=== PATIENT | female | born 1965 ===

== ENCOUNTER 2019-01-29 09:13 | Emergency (ER) | payer OTHER ==
--- NOTE | 2019-01-29 09:24 | EDM.PDOC ---
ED HPI GENERAL MEDICAL PROBLEM - General Chief Complaint: Respiratory Problem Stated Complaint: COUGH Time Seen by Provider: 01/29/19 09:21 - History of Present Illness INITIAL COMMENTS - FREE TEXT/NARRATIVE: HISTORY AND PHYSICAL: History of present illness: Patient 53-year-old female presents with a concern of shortness of breath and cough worse over last several days she had a similar episode last year for chest was diagnosed with community acquired pneumonia treated as outpatient patient is a smoker Review of systems: As per history of present illness and below otherwise all systems reviewed and negative. Past medical history: As per history of present illness and as reviewed below otherwise noncontributory. Surgical history: As per history of present illness and as reviewed below otherwise noncontributory. Social history: No reported history of drug or alcohol abuse. Family history: As per history of present illness and as reviewed below otherwise noncontributory. Physical exam: HEENT: Atraumatic, normocephalic, pupils reactive, negative for conjunctival pallor or scleral icterus, mucous membranes moist, throat clear, neck supple, nontender, trachea midline. Lungs: Coarse bilaterally, breath sounds equal bilaterally, chest nontender. Heart: S1S2, regular, negative for clicks, rubs, or JVD. Abdomen: Soft, nondistended, nontender. Negative for masses or hepatosplenomegaly. Negative for costovertebral tenderness. Pelvis: Stable nontender. Genitourinary: Deferred. Rectal: Deferred. Extremities: Atraumatic, negative for cords or calf pain. Neurovascular unremarkable. Neuro: Awake, alert, oriented. Cranial nerves II through XII unremarkable. Cerebellum unremarkable. Motor and sensory unremarkable throughout. Exam nonfocal. Diagnostics: CBC CMP influenza screen chest x-ray Therapeutics: Albuterol ipratropium nebulizer Impression: #1 tracheobronchitis Definitive disposition and diagnosis as appropriate pending reevaluation and review of above. - Related Data Allergies Allergy/AdvReac Type Severity Reaction Status Date / Time morphine Allergy Burning Verified 02/18/18 10:06 ED ROS GENERAL - Review of Systems Review Of Systems: Comprehensive ROS is negative, except as noted in HPI. ED EXAM, GENERAL - Physical Exam Exam: See Below (See dictation) Course - Vital Signs Last Recorded V/S: Last Vital Signs Temp 35.9 C 01/29/19 09:20 Pulse 86 01/29/19 09:20 Resp 20 01/29/19 09:20 BP 141/83 H 01/29/19 09:20 Pulse Ox 97 01/29/19 09:20 - Orders/Labs/Meds Orders: Active Orders 24 hr Category Date Time Status RT Aerosol Therapy [RC] ASDIRECTED Care 01/29/19 09:26 Active Labs: Laboratory Tests 01/29/19 01/29/19 Range/Units 09:36 09:36 WBC 7.33 (4.0-11.0) K/uL RBC 4.57 (4.30-5.90) M/uL Hgb 14.4 (12.0-16.0) g/dL Hct 43.3 (36.0-46.0) % MCV 94.7 (80.0-98.0) fL MCH 31.5 (27.0-32.0) pg MCHC 33.3 (31.0-37.0) g/dL RDW Std Deviation 43.5 (28.0-62.0) fl RDW Coeff of Brian 13 (11.0-15.0) % Plt Count 205 (150-400) K/uL MPV 10.70 (7.40-12.00) fL Neut % (Auto) 65.6 (48.0-80.0) % Lymph % (Auto) 23.2 (16.0-40.0) % [place] % (Auto) 7.8 (0.0-15.0) % Eos % (Auto) 3.1 (0.0-7.0) % Baso % (Auto) 0.3 (0.0-1.5) % Neut # (Auto) 4.8 (1.4-5.7) K/uL Lymph # (Auto) 1.7 (0.6-2.4) K/uL [place] # (Auto) 0.6 (0.0-0.8) K/uL Eos # (Auto) 0.2 (0.0-0.7) K/uL Baso # (Auto) 0.0 (0.0-0.1) K/uL Nucleated RBC % 0.0 /100WBC Nucleated RBCs # 0 K/uL Sodium 140 (136-145) mmol/L Potassium 3.8 (3.5-5.1) mmol/L Chloride 105 (98-107) mmol/L Carbon Dioxide 22.4 (21.0-32.0) mmol/L BUN 10 (7.0-18.0) mg/dL Creatinine 0.9 (0.6-1.0) mg/dL Est Cr Clr Drug Dosing 60.49 mL/min Estimated GFR (MDRD) > 60.0 ml/min Glucose 115 H (74-106) mg/dL Calcium 9.1 (8.5-10.1) mg/dL Total Bilirubin 0.4 (0.2-1.0) mg/dL AST 18 (15-37) IU/L ALT 25 (14-63) IU/L Alkaline Phosphatase 79 (46-116) U/L Total Protein 7.5 (6.4-8.2) g/dL Albumin 3.9 (3.4-5.0) g/dL Globulin 3.6 (2.6-4.0) g/dL Albumin/Globulin Ratio 1.1 (0.9-1.6) Meds: Medications Discontinued Medications Generic Name Dose Route Start Last Admin Trade Name Freq PRN Reason Stop Dose Admin Albuterol/Ipratropium 3 ml 01/29/19 09:26 01/29/19 09:34 Duoneb 3.0-0.5 Mg/3 Ml NEB 01/29/19 09:27 3 ml ONETIME ONE Administration Departure - Departure Time of Disposition: 10:09 Disposition: Home, Self-Care 01 Condition: Good Clinical Impression: Tracheobronchitis - Discharge Information Referrals: Sherron Bundy DO [Primary Care Provider] - Forms: ED Department Discharge Additional Instructions: The following information is given to patients seen in the emergency department who are being discharged to home. This information is to outline your options for follow-up care. We provide all patients seen in our emergency department with a follow-up referral. The need for follow-up, as well as the timing and circumstances, are variable depending upon the specifics of your emergency department visit. If you don't have a primary care physician on staff, we will provide you with a referral. We always advise you to contact your personal physician following an emergency department visit to inform them of the circumstance of the visit and for follow-up with them and/or the need for any referrals to a consulting specialist. The emergency department will also refer you to a specialist when appropriate. This referral assures that you have the opportunity for followup care with a specialist. All of these measure are taken in an effort to provide you with optimal care, which includes your followup. Under all circumstances we always encourage you to contact your private physician who remains a resource for coordinating your care. When calling for followup care, please make the office aware that this follow-up is from your recent emergency room visit. If for any reason you are refused follow-up, please contact the [facility] emergency department at and asked to speak to the emergency department charge nurse. Augmentin is prescribed Phenergan with codeine as prescribed continue albuterol as directed stop smoking follow-up primary medical doctor and return as needed as discussed - My Orders Last 24 Hours: My Active Orders 01/29/19 09:26 RT Aerosol Therapy [RC] ASDIRECTED - Assessment/Plan Last 24 Hours: My Active Orders 01/29/19 09:26 RT Aerosol Therapy [RC] ASDIRECTED
[2019-01-29] MEDS ORDERED: Albuterol/Ipratropium 3.0-0.5 MG/3 ML Neb Soln NEB ONE (09:26)
[2019-01-29 10:03] LABS: BLOOD UREA NITROGEN,BUN 10 mg/dL (7.0-18.0); CARBON DIOXIDE,CO2 22.4 mmol/L (21.0-32.0); CHLORIDE,CL 105 mmol/L (98-107); GLUCOSE RANDOM 115 mg/dL (74-106); POTASSIUM,K 3.8 mmol/L (3.5-5.1); SODIUM,NA 140 mmol/L (136-145)
--- NOTE | 2019-01-29 10:06 | CR ---
INDICATION: Pain and SOB. TECHNIQUE: Upright portable AP image of the chest. COMPARISON: None. FINDINGS: Lungs and pleural spaces clear. Heart, mediastinum and pulmonary vessels normal. No significant osseous abnormality. IMPRESSION: Negative chest. Dictated by Raman Bui MD @ Jan 29 2019 10:04AM Signed by Dr. Raman Bui @ Jan 29 2019 10:05AM
== END 2019-01-29 10:23 | disposition home or self-care (01) ==
LOC: MW.ED 09:13
DX: J40 Bronchitis, not specified as acute or chronic (principal); Z88.5 Allergy status to narcotic agent
CPT/HCPCS: 36415; 71045; 71045-26; 80053; 85025; 87804; 94640; 99285-25; J7620-GY

== ENCOUNTER 2019-06-10 11:36 | Emergency (ER) | payer MEDICAID, OTHER ==
[2019-06-10] MEDS ORDERED: Sodium Chloride 0.9% 1,000 ML IV ONE (12:00)
[2019-06-10] MEDS ORDERED: methylPREDNISolone Sodium Succinate 125 MG/2 ML SDV IVPUSH ONE (12:04)
[2019-06-10] MEDS ORDERED: Magnesium Sulfate (4.06 MEQ/ML) 5 GM/10 ML SDV IV ONE (12:05)
[2019-06-10] MEDS ORDERED: Albuterol/Ipratropium 3.0-0.5 MG/3 ML Neb Soln NEB ONE (12:06)
--- NOTE | 2019-06-10 12:13 | EDM.PDOC ---
ED HPI GENERAL MEDICAL PROBLEM - General Chief Complaint: General Stated Complaint: cough Time Seen by Provider: 06/10/19 11:58 Source of Information: Reports: Patient History Limitations: Reports: No Limitations - History of Present Illness INITIAL COMMENTS - FREE TEXT/NARRATIVE: This 53 year old female was admitted to the ED after being told to come to the ED after calling our nursing staff to be evaluated for COVID-19. She complains of coughing, SOB and body aches for a couple of days. She also states that she had a fever yesterday. She has a history of COPD. She states that her sense of smell and taste is somewhat different which is different from her normal taste and smell issues. She denies any nausea or vomiting. No chest pain. She complains of wheezing that has gotten worse over the past day. She denies any other symptoms at this time. Middle Chest Pain Score (Numeric/FACES): 6 - Related Data Allergies Allergy/AdvReac Type Severity Reaction Status Date / Time morphine Allergy Burning Verified 06/10/19 11:49 Home Meds: Home Meds Albuterol [Proventil HFA] 2 puff INH Q4H PRN 5 Days #1 inhaler 06/10/19 [Rx] Past Medical History Musculoskeletal History: Reports: None - Infectious Disease History Infectious Disease History: Reports: None - Past Surgical History GI Surgical History: Reports: Cholecystectomy Other Musculoskeletal Surgeries/Procedures:: knee surgery Social & Family History - Family History Family Medical History: Noncontributory - Tobacco Use Smoking Status *Q: Current Every Day Smoker Years of Tobacco use: 3 Packs/Tins Daily: 1 - Caffeine Use Caffeine Use: Reports: Coffee, Soda - Recreational Drug Use Recreational Drug Use: No ED ROS GENERAL - Review of Systems Review Of Systems: See Below Constitutional: Reports: Fever, Fatigue HEENT: Reports: No Symptoms Respiratory: Reports: Shortness of Breath, Wheezing, Sputum (dry). Denies: Hemoptysis Cardiovascular: Reports: No Symptoms Endocrine: Reports: No Symptoms GI/Abdominal: Reports: No Symptoms : Reports: No Symptoms Musculoskeletal: Reports: No Symptoms Skin: Reports: No Symptoms Neurological: Reports: No Symptoms ED EXAM, GENERAL - Physical Exam Exam: See Below Exam Limited By: No Limitations General Appearance: Alert, WD/WN, Anxious (somewhat), Mild Distress ( respiratory distress.) Ears: Normal External Exam, Normal Canal, Hearing Grossly Normal, Normal TMs Nose: Normal Inspection, Normal Mucosa. No: Nasal Drainage Throat/Mouth: Normal Inspection, Normal Oropharynx, No Airway Compromise Head: Atraumatic, Normocephalic Neck: Normal Inspection, Supple, Non-Tender Respiratory/Chest: Respiratory Distress (mild respiratory distress), Wheezing ( through out posterior chest wall.), Prolonged Expiration Cardiovascular: Normal Peripheral Pulses, Regular Rate, Rhythm, No Gallop, No JVD, No Murmur, No Rub GI/Abdominal: Normal Bowel Sounds, Soft, No Organomegaly, No Abnormal Bruit, Other (obese) (Female) Exam: Deferred Rectal (Female) Exam: Deferred Back Exam: Normal Inspection Extremities: Normal Inspection, Normal Range of Motion, Normal Capillary Refill Neurological: Alert, Oriented (times 4), CN II-XII Intact, Normal Reflexes Psychiatric: Normal Affect, Normal Mood Skin Exam: Warm, Dry, Intact, Normal Color, No Rash Lymphatic: No Adenopathy Course - Vital Signs Text/Narrative:: The patent Chest X-ray is negative. She is breathing much better after her breathing treatment along with Magnisum and Solu-Medrol. I discussed with her the need to self quarantine until her results are called to her over the next two to three days. She will be discharged at this time. The patient agrees agrees with the discharge. Last Recorded V/S: Last Vital Signs Temp 96.6 F L 06/10/19 11:49 Pulse 82 06/10/19 12:50 Resp 20 06/10/19 12:50 BP 139/80 06/10/19 12:50 Pulse Ox 99 06/10/19 12:50 - Orders/Labs/Meds Orders: Active Orders 24 hr Category Date Time Status RT Aerosol Therapy [RC] ASDIRECTED Care 06/10/19 12:06 Active COMPREHENSIVE METABOLIC PN,CMP [CHEM] Stat Lab 06/10/19 12:47 Received CORONAVIRUS COVID-19 PCR PHL [MREF] Stat Lab 06/10/19 12:40 Received Labs: Laboratory Tests 06/10/19 Range/Units 12:47 WBC 8.48 (4.0-11.0) K/uL RBC 4.52 (4.30-5.90) M/uL Hgb 14.4 (12.0-16.0) g/dL Hct 42.8 (36.0-46.0) % MCV 94.7 (80.0-98.0) fL MCH 31.9 (27.0-32.0) pg MCHC 33.6 (31.0-37.0) g/dL RDW Std Deviation 45.0 (28.0-62.0) fl RDW Coeff of Brian 13 (11.0-15.0) % Plt Count 229 (150-400) K/uL MPV 10.40 (7.40-12.00) fL Neut % (Auto) 70.5 (48.0-80.0) % Lymph % (Auto) 22.8 (16.0-40.0) % [place] % (Auto) 3.8 (0.0-15.0) % Eos % (Auto) 2.8 (0.0-7.0) % Baso % (Auto) 0.1 (0.0-1.5) % Neut # (Auto) 6.0 H (1.4-5.7) K/uL Lymph # (Auto) 1.9 (0.6-2.4) K/uL [place] # (Auto) 0.3 (0.0-0.8) K/uL Eos # (Auto) 0.2 (0.0-0.7) K/uL Baso # (Auto) 0.0 (0.0-0.1) K/uL Nucleated RBC % 0.0 /100WBC Nucleated RBCs # 0 K/uL Meds: Medications Discontinued Medications Generic Name Dose Route Start Last Admin Trade Name Freq PRN Reason Stop Dose Admin Albuterol/Ipratropium 3 ml 06/10/19 12:06 06/10/19 12:43 Duoneb 3.0-0.5 Mg/3 Ml NEB 06/10/19 12:07 3 ml ONETIME ONE Administration Sodium Chloride 1,000 mls @ 1,000 mls/hr 06/10/19 12:00 06/10/19 12:37 Normal Saline IV 06/10/19 12:59 Not Given .Bolus ONE Magnesium Sulfate 1 gm/ Sodium 52 mls @ 104 mls/hr 06/10/19 12:15 06/10/19 12 :37 Chloride IV 06/10/19 12:44 Not Given ONETIME ONE Magnesium Sulfate 1 gm 06/10/19 12:05 Magnesium Sulfate 50% IV 06/10/19 12:06 ONETIME ONE Methylprednisolone Sodium Succinate 125 mg 06/10/19 12:04 06/10/19 12:37 Solu-Medrol IVPUSH 06/10/19 12:05 Not Given ONETIME ONE Methylprednisolone Sodium Succinate 125 mg 06/10/19 12:37 06/10/19 12:37 Solu-Medrol IM 06/10/19 12:38 125 mg ONETIME ONE Administration Departure - Departure Time of Disposition: 13:18 Disposition: Home, Self-Care 01 Condition: Good Clinical Impression: Viral syndrome, COPD exacerbation - Discharge Information *PRESCRIPTION DRUG MONITORING PROGRAM REVIEWED*: Yes *COPY OF PRESCRIPTION DRUG MONITORING REPORT IN PATIENT ASHLEY: Yes Instructions: How to Use a Nebulizer, Adult, Viral Respiratory Infection, Easy- To-Read Referrals: PCP,Unobtain [Primary Care Provider] - Forms: ED Department Discharge Additional Instructions: Take all medications as directed. We will notify you when your COVID-19 test results are back. Follow the instruction given you regarding possible COVID protocol adopted by the CDC (Centers for the Disease Control). Follow up with your PCP in the next three to four days. Drink plenty of clear liquids for the next 24-48 hours. Rest for the next 24 hours. Return to the ED if your condition gets worse or should you have any questions or concerns. The following information is given to patients seen in the emergency department who are being discharged to home. This information is to outline your options for follow-up care. We provide all patients seen in our emergency department with a follow-up referral. The need for follow-up, as well as the timing and circumstances, are variable depending upon the specifics of your emergency department visit. If you don't have a primary care physician on staff, we will provide you with a referral. We always advise you to contact your personal physician following an emergency department visit to inform them of the circumstance of the visit and for follow-up with them and/or the need for any referrals to a consulting specialist. The emergency department will also refer you to a specialist when appropriate. This referral assures that you have the opportunity for follow-up care with a specialist. All of these measure are taken in an effort to provide you with optimal care, which includes your follow-up. Under all circumstances we always encourage you to contact your private physician who remains a resource for coordinating your care. When calling for follow-up care, please make the office aware that this follow-up is from your recent emergency room visit. If for any reason you are refused follow-up, please contact the [facility] Emergency Department at and asked to speak to the emergency department charge nurse. Sepsis Event Note - Evaluation Sepsis Screening Result: No Definite Risk - Focused Exam Vital Signs: Vital Signs Temp Pulse Resp BP Pulse Ox 06/10/19 12:50 82 20 139/80 99 06/10/19 11:49 96.6 F L 85 22 H 155/82 H 99 Date Exam was Performed: 06/10/19 Time Exam was Performed: 13:14 - My Orders Last 24 Hours: My Active Orders 06/10/19 12:06 RT Aerosol Therapy [RC] ASDIRECTED 06/10/19 12:40 CORONAVIRUS COVID-19 PCR PHL [MREF] Stat 06/10/19 12:47 COMPREHENSIVE METABOLIC PN,CMP [CHEM] Stat - Assessment/Plan Last 24 Hours: My Active Orders 06/10/19 12:06 RT Aerosol Therapy [RC] ASDIRECTED 06/10/19 12:40 CORONAVIRUS COVID-19 PCR PHL [MREF] Stat 06/10/19 12:47 COMPREHENSIVE METABOLIC PN,CMP [CHEM] Stat
[2019-06-10] MEDS ORDERED: methylPREDNISolone Sodium Succinate 125 MG/2 ML SDV IM ONE (12:37)
--- NOTE | 2019-06-10 12:40 | CR ---
Chest: Portable view of the chest was obtained. Comparison: Prior chest x-ray of 01/29/19. Heart size and mediastinum are normal. Lungs are clear with no acute parenchymal change. Bony structures are grossly intact. Impression: 1. Nothing acute is appreciated on portable chest x-ray. Diagnostic code #1 Study was dictated in MDT
[2019-06-10 13:15] LABS: POTASSIUM,K 3.9 mmol/L (3.5-5.1)
== END 2019-06-10 13:45 | disposition home or self-care (01) ==
LOC: MW.ED 11:36
DX: J44.1 Chronic obstructive pulmonary disease with (acute) exacerbation (principal); B34.9 Viral infection, unspecified; F17.210 Nicotine dependence, cigarettes, uncomplicated; Z88.5 Allergy status to narcotic agent
CPT/HCPCS: 36415; 71045; 80053; 85025; 87635; 96372; 99285; J2930; 99283; J7620-GY; U0002